=== PATIENT | female | born 2000 | race African-American/Black ===

== ENCOUNTER 2024-10-11 13:57 | Emergency (ER) | payer SELFPAY ==
[2024-10-11 14:02] VITALS: BP 113/76
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
[2024-10-11 17:40] VITALS: BP 118/74
[2024-10-11] MEDS: TYLENOL 650 MG PO (17:40)
[2024-10-11] MEDS: ADACEL 0.5 ML IM (19:13)
== END 2024-10-11 19:30 | disposition home or self-care (01) ==
LOC: EMR 13:57
PROVIDERS: EMERGENCY PHYSICIAN Emergency Medicine
DX: S02.2XXA Fracture of nasal bones, initial encounter for closed fracture (principal); S00.33XA Contusion of nose, initial encounter; M54.2 Cervicalgia; M79.632 Pain in left forearm; M79.631 Pain in right forearm; V40.5XXA Car driver injured in collision with pedestrian or animal in traffic accident, initial encounter; V47.5XXA Car driver injured in collision with fixed or stationary object in traffic accident, initial encounter; Z23 Encounter for immunization
CPT/HCPCS: 90471; 99284; 70450; 70486; 72125; 73090; 90715